=== PATIENT | female | born 1975 | race African-American/Black ===

== ENCOUNTER 2023-02-01 15:29 | Emergency (ER) | payer MEDICAID ==
[~2023-02-01] VITALS: Ht 157.5 cm; Wt 51.2 kg
[~2023-02-01 15:29] MED LIST: PRENCAP61 OR
[2023-02-01 17:04] LABS: Urine Bacteria NONE SEEN /hpf (None Seen); Urine Blood Negative /uL (Negative); Urine Clarity HAZY (Clear); Urine Color Yellow (Yellow); Urine Mucus FEW (None Seen); Urine Protein, UAD Negative (Negative); Urine Specific Gravity 1.018 (1.001-1.035); Urine Urobilinogen Normal (Negative); Urine WBC 2 /hpf (0 - 5)
[2023-02-01] MEDS ORDERED: IBUP1TAB5 PO (20:42)
[2023-02-01] MEDS ORDERED: CYCL-839 PO (20:42)
[2023-02-01 20:50] VITALS: BP 125/96; PULSE 73; RESP 18; O2SAT 100
== END 2023-02-01 21:46 | disposition home or self-care (01) ==
LOC: ER 15:29
DX: S13.4XXA Sprain of ligaments of cervical spine, initial encounter (principal); S33.5XXA Sprain of ligaments of lumbar spine, initial encounter; S43.402A Unspecified sprain of left shoulder joint, initial encounter; S43.401A Unspecified sprain of right shoulder joint, initial encounter; S00.03XA Contusion of scalp, initial encounter; I10 Essential (primary) hypertension; I25.2 Old myocardial infarction; E11.9 Type 2 diabetes mellitus without complications; Z86.73 Personal history of transient ischemic attack (TIA), and cerebral infarction without residual deficits; Z79.899 Other long term (current) drug therapy; V49.9XXA Car occupant (driver) (passenger) injured in unspecified traffic accident, initial encounter; Y93.89 Activity, other specified; Y92.410 Unspecified street and highway as the place of occurrence of the external cause; Y99.8 Other external cause status
CPT/HCPCS: 70450; 72125; 73030; 81001; 81025